=== PATIENT | male | born 1995 | race Caucasian/White ===

== ENCOUNTER → 2020-09-23 | Outpatient (CLI) | payer BC ==
[2020-09-23 20:00] LABS: BASO # 0.1 10^3/uL (0.0-0.2); BASO % 1.7 % (0.0-1.0); EOS # 0.5 10^3/uL (0.0-0.5); EOS % 8.1 % (0.0-3.0); HEMATOCRIT 46.9 % (42.0-52.0); HEMOGLOBIN 15.4 g/dl (13.5-17.5); LYMPH # 2.4 10^3/uL (1.5-5.0); LYMPH % 37.3 % (24.0-44.0); MEAN CORPUSCULAR HEMOGLOBIN 32.4 pg (27.0-33.0); MEAN CORPUSCULAR HGB CONC 32.8 g/dl (32.0-36.5); MEAN CORPUSCULAR VOLUME 98.5 fl (80.0-96.0); MONO # 0.8 10^3/uL (0.0-0.8); MONO % 11.8 % (2.0-8.0); NEUTROPHILS # 2.7 10^3/uL (1.5-8.5); NEUTROPHILS % 40.8 % (36.0-66.0); PLATELET COUNT, AUTOMATED 230 10^3/uL (150-450); RED BLOOD COUNT 4.76 10^6/uL (4.30-6.10); WHITE BLOOD COUNT 6.5 10^3/uL (4.0-10.0)
[2020-09-23 20:29] LABS: ALT/SGPT 28 U/L (12-78); BILIRUBIN,TOTAL 0.5 MG/DL (0.2-1.0); BLOOD UREA NITROGEN 24 MG/DL (7-18); CALCIUM LEVEL 9.2 MG/DL (8.5-10.1); CARBON DIOXIDE LEVEL 30 MEQ/L (21-32); CHLORIDE LEVEL 103 MEQ/L (98-107); CHOLESTEROL LEVEL 180 MG/DL (<200); CHOLESTEROL RISK RATIO 1.894 (<5); CREATININE FOR GFR 1.07 MG/DL (0.70-1.30); GLOMERULAR FILTRATION RATE > 60.0 (>60); GLUCOSE, FASTING 73 MG/DL (70-100); HDL CHOLESTEROL 95 MG/DL (>40); NON-HDL-C 85 MG/DL; POTASSIUM SERUM 4.4 MEQ/L (3.5-5.1); SODIUM LEVEL 139 MEQ/L (136-145); TRIGLYCERIDES LEVEL 60 MG/DL (<150)
[2020-09-23 20:30] LABS: ALBUMIN 4.3 GM/DL (3.2-5.2); FREE T4 0.98 NG/DL (0.76-1.46); LDL CHOLESTEROL 73 MG/DL (<100); TOTAL PROTEIN 7.9 GM/DL (6.4-8.2)
== END ==
LOC: M WUC 15:39
PROVIDERS: ATTEND Physician Assistant
DX: R07.9 Chest pain, unspecified (principal)

== ENCOUNTER 2021-03-18 18:18 | Emergency (ER) | payer BC ==
[~2021-03-18] VITALS: Ht 188 cm; Wt 215.0 kg
--- OUTSIDE RECORDS SUMMARY | 2021-03-18 18:24 | CCD ---
Author Author [facility] Organization [facility] Address Unknown Phone Unavailable Care Team Providers Care Mason Foreman/Superintendant Name Role Phone Christopher Anahi MEDICAL RECEPTION Unavailable Unavailable Christopher, Anahi MEDICAL RECEPTION Unavailable Unavailable Christopher, Anahi MEDICAL RECEPTION Unavailable Unavailable Christopher, Anahi MEDICAL RECEPTION Unavailable Unavailable Christopher, Anahi MEDICAL RECEPTION Unavailable Unavailable Christopher, Anahi MEDICAL RECEPTION Unavailable Unavailable Christopher, Anahi MEDICAL RECEPTION Unavailable Unavailable Christopher, Anahi MEDICAL RECEPTION Unavailable Unavailable Christopher, Anahi MEDICAL RECEPTION Unavailable Unavailable Christopher, Anahi MEDICAL RECEPTION Unavailable Unavailable Christopher, Anahi MEDICAL RECEPTION Unavailable Unavailable Christopher, Anahi MEDICAL RECEPTION Unavailable Unavailable Christopher, Anahi MEDICAL RECEPTION Unavailable Unavailable Campanaro, Mare Venus PA Unavailable Unavailable Campanaro, Mare Vneus PA Unavailable Unavailable Campanaro, Mare Venus PA Unavailable Unavailable Campanaro, Mare Venus PA Unavailable Unavailable Campanaro, Mare Venus PA Unavailable Unavailable Campanaro, Mare Venus PA Unavailable Unavailable Campanaro, Mare Venus PA Unavailable Unavailable Campanaro, Mare Venus PA Unavailable Unavailable Campanaro, Mare Venus PA Unavailable Unavailable Campanaro, Mare Venus PA Unavailable Unavailable Campanaro, Mare Venus PA Unavailable Unavailable Campanaro, Mare Venus PA Unavailable Unavailable Campanaro, Mare Venus PA Unavailable Unavailable Campanaro, Mare Venus PA Unavailable Unavailable Campanaro, Mare Venus PA Unavailable Unavailable Campanaro, Rebecca Meloshani TORRES Unavailable Unavailable Campanaro, Rebecca Donovan MELISSA Unavailable Unavailable Re-disclosure Warning The records that you are about to access may contain information from federally-assisted alcohol or drug abuse programs. If such information is present, then the following federally mandated warning applies: This information has been disclosed to you from records protected by federal confidentiality rules (42 CFR part 2). The federal rules prohibit you from making any further disclosure of this information unless further disclosure is expressly permitted by the written consent of the person to whom it pertains or as otherwise permitted by 42 CFR part 2. A general authorization for the release of medical or other information is NOT sufficient for this purpose. The Federal rules restrict any use of the information to criminally investigate or prosecute any alcohol or drug abuse patient.The records that you are about to access may contain highly sensitive health information, the redisclosure of which is protected by Article 27-F of the [facility] Public Health law. If you continue you may have access to information: Regarding HIV / AIDS; Provided by facilities licensed or operated by the [facility] Office of Mental Health; or Provided by the [facility] Office for People With Developmental Disabilities. If such information is present, then the following [facility] mandated warning applies: This information has been disclosed to you from confidential records which are protected by state law. State law prohibits you from making any further disclosure of this information without the specific written consent of the person to whom it pertains, or as otherwise permitted by law. Any unauthorized further disclosure in violation of state law may result in a fine or care home sentence or both. A general authorization for the release of medical or other information is NOT sufficient authorization for further disc losure. Encounters Encounter Providers Location Date Indications Data Source(s ) Outpatient 02/18/2021 03:36:50 PM EST - 021 04:16:03 PM EST [facility] ([facility]) Outpatient 12/12/2020 01:54:11 PM EDT - 021 03:22:15 PM EDT [facility] ([facility]) Outpatient Attender: Venus zendejas 09/22/2020 04:40:00 PM EDT [facility] ([facility]) Outpatient Attender: Anahi villa 08/19/2020 03:10:00 PM EDT [facility] ([facility], [facility]) Immunizations Vaccine Date Status Description Data Source(s) COVID-19 VACCINE Pfizer 03/11/2021 12:00:00 AM EST completed [facility] Vaccine Series Complete: NOThis Data was Submitted to [facility]. COVID-19 VACC, MRNA(PFIZER)/PF 03/11/2021 12:00:00 AM EST completed [facility] Medications No Information Insurance Providers Payer name Policy type / Coverage type Policy ID Covered green party ID Covered green party's relationship to solitario Policy Solitario Plan Information POMCO U [id number] Child [id number] POMCO [id number] MO2 [id number] [employer] Blue [employer] and Blue Shield [facility] Blue Cross/B lue Shield [id number] Self [id number] [employer] Blue Cross and Blue Shield [facility] Blue Cross/ Blue Shield [id number] Self [id number] BCBS OF [place]AT[place] [phone] [id number] SP [id number] [employer] PPO O [id number] C [id number] [employer] Commercial [id number] Family Dependent Problems, Conditions, and Diagnoses No Information Surgeries/Procedures Procedure Description Date Indications Data Source(s) ECG ROUTINE ECG W/LEAST 12 LDS W/I&R 09/22/2020 12:00: 00 AM EDT [facility] ([facility]) OFFICE OUTPATIENT NEW 30 MINUTES 09/22/2020 12:00:00 A M EDT [facility] ([facility]) Results ID Date Data Source [id number] 03/13/2021 12:00:00 AM EST [facility] Name Value Range Interpretation Code Description Data Lisette rce(s) Supporting Document(s) SARS-CoV2 Rapid Antigen Negative [facility] This lab was ordered by [facility] and reported by [facility]. ID Date Data Source [id number] 02/18/2021 04:15:00 PM EST [facility] Name Value Range Interpretation Code Description Data Lisette rce(s) Supporting Document(s) SARS-CoV-2 RNA Resp Ql ROBERT+probe NOT DETECTED [facility] This lab was ordered by MELISSA boles and reported by [facility]. ID Date Data Source [id number] 12/12/2020 03:15:00 PM EDT [facility] Name Value Range Interpretation Code Description Data Lisette rce(s) Supporting Document(s) SARS-CoV-2 RNA Resp Ql ROBERT+probe NOT DETECTED [facility] This lab was ordered by MELISSA boles and reported by [facility]IS[facility]. ID Date Data Source [id number] 09/23/2020 03:39:00 PM EDT [facility] ([facility], [facility]) Name Value Range Interpretation Code Description Data Lisette rce(s) Supporting Document(s) Thyroid Stimulating Hormone 1.120 uIU/ML 0.358-3.740 [facility] ([facility], [facility]) Free T4 0.98 ng/dL 0.76-1.46 [facility] ([facility]) ID Date Data Source [id number] 09/23/2020 03:39:00 PM EDT [facility] ([facility], [facility]) Name Value Range Interpretation Code Description Data Lisette rce(s) Supporting Document(s) Triglycerides Level 60 mg/dL [facility] ([facility], [facility]) HDL Cholesterol 95 mg/dL [facility] ([facility], [facility]) Cholesterol Level 180 mg/dL [facility] ([facility], [facility]) Non-HDL-C 85 mg/dL [facility] ([facility], [facility]) LDL Cholesterol 73 mg/dL [facility] ([facility], [facility]) Cholesterol Risk Ratio 1.894 [facility] ([facility], [facility]) ID Date Data Source [id number] 09/23/2020 03:39:00 PM EDT [facility] ([facility], [facility]) Name Value Range Interpretation Code Description Data Lisette rce(s) Supporting Document(s) Blood Urea Nitrogen 24 mg/dL 7-18 [facility] ([facility], [facility]) Glucose, Fasting 73 mg/dL 70-100 [facility] ([facility], [facility]) Glomerular Filtration Rate Laboratory test result [facility] ([facility], [facility]) <content>Units are mL/min/1.73 m2</content>
<content></content>
<content>Chronic Kidney Disease Staging per NKF:</content>
<content></content>
<content>Stage I & II GFR >=60 Normal to Mildly Decreased</content>
<content>Stage III GFR 30-59 Moderately Decreased</content>
<content>Stage IV GFR 15-29 Severely Decreased</content>
<content>Stage V GFR <15 Very Little GFR Left</content>
<content>ESRD GFR <15 on AERIAL LINEMAN</content>
<content></content> Creatinine For GFR 1.07 mg/dL 0.70-1.30 [facility] ([facility], [facility]) Potassium Serum 4.4 meq/L 3.5-5.1 [facility] ([facility], [facility]) Sodium Level 139 meq/L 136-145 [facility] ([facility], [facility]) Carbon Dioxide Level 30 meq/L 21-32 [facility] ([facility], [facility]) Chloride Level 103 meq/L 98-107 [facility] ([facility], [facility]) Anion Gap 6 meq/L 8-16 [facility] ([facility], [facility]) Calcium Level 9.2 mg/dL 8.5-10.1 [facility] ([facility], [facility]) Ast/Sgot 17 U/L 7-37 [facility] ([facility], [facility]) Alkaline Phosphatase 47 U/L 45-117 [facility] ([facility], [facility]) Alt/SGPT 28 U/L 12-78 [facility] ([facility], [facility]) Total Protein 7.9 GM/DL 6.4-8.2 [facility] ([facility], [facility]) Bilirubin,Total 0.5 mg/dL 0.2-1.0 [facility] ([facility], [facility]) Albumin 4.3 GM/DL 3.2-5.2 [facility] ([facility], [facility]) Albumin/Globulin Ratio 1.2 [facility] ([facility], [facility]) ID Date Data Source [id number] 09/23/2020 03:39:00 PM EDT [facility] ([facility], [facility]) Name Value Range Interpretation Code Description Data Lisette rce(s) Supporting Document(s) Red Blood Count 4.76 10 4.30-6.10 [facility] ([facility], [facility]) White Blood Count 6.5 10 4.0-10.0 [facility] ([facility], [facility]) Hemoglobin 15.4 g/dL 13.5-17.5 [facility] ([facility], [facility]) Hematocrit 46.9 % 42.0-52.0 [facility] ([facility], [facility]) Mean Corpuscular Hemoglobin 32.4 pg 27.0-33.0 [facility] ([facility], [facility]) Mean Corpuscular Volume 98.5 fl 80.0-96.0 M [facility] ([facility], [facility]) Mean Corpuscular HGB Conc 32.8 g/dL 32.0-36.5 [facility] ([facility], [facility]) Red Cell Distribution Width 12.5 % 11.5-14.5 [facility] ([facility], [facility]) Platelet Count, Automated 230 10 150-450 [facility] ([facility], [facility]) Neutrophils % 40.8 % 36.0-66.0 [facility] ([facility], [facility]) [place] % 11.8 % 2.0-8.0 [facility] ([facility], [facility]) Lymph % 37.3 % 24.0-44.0 [facility] ([facility], [facility]) Eos % 8.1 % 0.0-3.0 [facility] ([facility], [facility]) Immature Granulocyte % 0.3 % 0-3.0 [facility] ([facility], [facility]) Baso % 1.7 % 0.0-1.0 [facility] ([facility], [facility]) Nucleated Red Blood Cell % 0.0 % 0-0 [facility] ([facility]) Lymph # 2.4 10 1.5-5.0 [facility] ([facility]) Neutrophils # 2.7 10 1.5-8.5 [facility] ([facility]) [place] # 0.8 10 0.0-0.8 [facility] ([facility], [facility]) Baso # 0.1 10 0.0-0.2 [facility] ([facility], [facility]) Eos # 0.5 10 0.0-0.5 [facility] ([facility], [facility]) ID Date Data Source [id number] 08/19/2020 12:00:00 AM EDT [facility] Name Value Range Interpretation Code Description Data Lisette rce(s) Supporting Document(s) SARS-CoV2 Rapid Antigen [facility] This lab was reported by [facility]. ID Date Data Source [id number] 04/14/2020 12:00:00 AM EST [facility] Name Value Range Interpretation Code Description Data Lisette rce(s) Supporting Document(s) SARS coronavirus 2 RNA [Presence] in Res piratory specimen by ROBERT with probe detection NEGATIVE [facility] This lab was ordered by [facility] and reported by [facility]. Procedure Social History No Information Vital Signs ID Date Data Source UNK Name Value Range Interpretation Code Description Data Source(s) Systolic blood pressure 122 mm[Hg] 122 mm[Hg] M [facility] ([facility]) Diastolic blood pressure 73 mm[Hg] 73 mm[Hg] [facility] ([facility]) Heart rate 82 /min 82 /min [facility] ([facility]) Respiratory rate 16 /min 16 /min [facility] ( [facility]) Oxygen saturation in Arterial blood by Pulse oximetry 97 % 97 % [facility] ([facility]) Body temperature 97.7 [degF] 97.7 [degF] [facility] ([facility]) Body weight 202.00 [lb_av] 202.00 [lb_av] [facility] ([facility], [facility]) Body height 74 [in_i] 74 [in_i] [facility] ([facility], [facility]) 6'2" Body mass index (BMI) [Ratio] 25.9 kg/m2 25.9 k g/m2 [facility] ([facility], [facility]) Respiratory rate 20 /min 20 /min [facility] ( [facility], [facility]) Systolic blood pressure 121 mm[Hg] 121 mm[Hg] M [facility] ([facility], [facility]) Diastolic blood pressure 77 mm[Hg] 77 mm[Hg] [facility] ([facility], [facility]) Heart rate 66 /min 66 /min [facility] ([facility], [facility]) Oxygen saturation in Arterial blood by Pulse oximetry 98 % 98 % [facility] ([facility], [facility]) Body temperature 98.2 [degF] 98.2 [degF] [facility] ([facility], [facility]) Body weight 200.00 [lb_av] 200.00 [lb_av] [facility] ([facility], [facility]) Body height 74 [in_i] 74 [in_i] [facility] ([facility], [facility]) 6'2" Body mass index (BMI) [Ratio] 25.7 kg/m2 25.7 k g/m2 [facility] ([facility], [facility])
--- OUTSIDE RECORDS SUMMARY | 2021-03-18 18:24 | CCD | Continuity of Care Document ---
Author Author Jose Alberto [facility] Organization Unknown Address [address] [place] [address] Phone [phone] Care Team Providers Care J2Ee Java Developer Name Role Phone [employer] AUTM [phone] [facility] [phone] Antony Caldera M.D. AUTM [phone] Problems Description No Information Available Social History Type Date Description Comments Sex Unknown ETOH Use Occasionally consumes alcohol Tobacco Use Start: Unknown The patient has never vaped Tobacco Use Start: Unknown Patient has never smoked Smoking Status Reviewed: 09/26/19 Patient has never smoked Allergies and adverse reactions Active Allergies Criticality Reaction | Severity Comments Date Penicillin V Unable to assess criticality Difficulty breathing, Difficulty swallowing, Facial swelling 09/26/2019 Medications Description No Active Medications Immunizations Description No Information Available Vital Signs Date Vital Result Comment 09/22/2020 4:51pm BP Systolic 122 mmHg BP Diastolic 73 mmHg Heart Rate 82 /min Respiratory Rate 16 /min O2 % BldC Oximetry 97 % Body Temperature 97.7 F Weight 202.00 lb Height 74 inches 6'2" BMI (Body Mass Index) 25.9 kg/m2 Pain Level 1 08/19/2020 3:38pm BP Systolic 121 mmHg BP Diastolic 77 mmHg Heart Rate 66 /min Respiratory Rate 20 /min O2 % BldC Oximetry 98 % Body Temperature 98.2 F Weight 200.00 lb Height 74 inches 6'2" BMI (Body Mass Index) 25.7 kg/m2 Pain Level 0 Results Test Acquired Date Facility Test Result H/L Range Note CBC With Differential 09/23/2020 [facility] [address] [place], [place] [id number] [phone] White Blood Count 6.5 10 Normal 4.0-10.0 Red Blood Count 4.76 10 Normal 4.30-6.10 Hemoglobin 15.4 g/dL Normal 13.5-17.5 Hematocrit 46.9 % Normal 42.0-52.0 Mean Corpuscular Volume 98.5 fl High 80.0-96.0 Mean Corpuscular Hemoglobin 32.4 pg Normal 27.0-33.0 Mean Corpuscular HGB Conc 32.8 g/dL Normal 32.0-36.5 Red Cell Distribution Width 12.5 % Normal 11.5-14.5 Platelet Count, Automated 230 10 Normal 150-450 Neutrophils % 40.8 % Normal 36.0-66.0 Lymph % 37.3 % Normal 24.0-44.0 [place] % 11.8 % High 2.0-8.0 Eos % 8.1 % High 0.0-3.0 Baso % 1.7 % High 0.0-1.0 Immature Granulocyte % 0.3 % Normal 0-3.0 Nucleated Red Blood Cell % 0.0 % Normal 0-0 Neutrophils # 2.7 10 Normal 1.5-8.5 Lymph # 2.4 10 Normal 1.5-5.0 [place] # 0.8 10 Normal 0.0-0.8 Eos # 0.5 10 Normal 0.0-0.5 Baso # 0.1 10 Normal 0.0-0.2 Comprehensive Metabolic Profil 09/23/[address] [address] [phone] Glucose, Fasting 73 mg/dL Normal 70-100 Blood Urea Nitrogen 24 mg/dL High 7-18 Creatinine For GFR 1.07 mg/dL Normal 0.70-1.30 Glomerular Filtration Rate > 60.0 Normal >60 1 Sodium Level 139 mEq/L Normal 136-145 Potassium Serum 4.4 mEq/L Normal 3.5-5.1 Chloride Level 103 mEq/L Normal 98-107 Carbon Dioxide Level 30 mEq/L Normal 21-32 Anion Gap 6 mEq/L Low 8-16 Calcium Level 9.2 mg/dL Normal 8.5-10.1 Ast/Sgot 17 U/L Normal 7-37 Alt/SGPT 28 U/L Normal 12-78 Alkaline Phosphatase 47 U/L Normal 45-117 Bilirubin,Total 0.5 mg/dL Normal 0.2-1.0 Total Protein 7.9 GM/DL Normal 6.4-8.2 Albumin 4.3 GM/DL Normal 3.2-5.2 Albumin/Globulin Ratio 1.2 Normal Lipid Panel 09/23/2020 [facility] [address] [place] [address] [phone] Triglycerides Level 60 mg/dL Normal <150 Cholesterol Level 180 mg/dL Normal <200 HDL Cholesterol 95 mg/dL Normal >40 LDL Cholesterol 73 mg/dL Normal <100 Non-HDL-C 85 mg/dL Normal Cholesterol Risk Ratio 1.894 Normal <5 FT4&TSH Panel 09/23/2020 [facility] [address] [place] [address] [phone] Thyroid Stimulating Hormone 1.120 uIU/ML Normal 0. 358-3.740 Free T4 0.98 ng/dL Normal 0.76-1.46 1 Units are mL/min/1.73 m2 Chronic Kidney Disease Staging per NKF: Stage I & II GFR >=60 Normal to Mildly Decreased Stage III GFR 30-59 Moderately Decreased Stage IV GFR 15-29 Severely Decreased Stage V GFR <15 Very Little GFR Left ESRD GFR <15 on MERC[employer]ENT Procedures Date Code Description Status 09/22/2020 [address]184 Office/Outpatient [facility] MDM 30 -44 Minutes Completed 09/22/2020 72960 Electrocardiogram Complete Compl eted Medical Devices Description No Information Available Encounters Type Date Location Provider Dx Diagnosis Office Visit 09/22/2020 4:40p Main Office MELISSA Palencia R0 7.9 Chest pain, unspecified R07.9 Chest pain, unspecified Assessments Date Code Description Provider 09/22/2020 R07.9 Chest pain, unspecified MELISSA To 09/22/2020 R07.9 Chest pain, unspecified MELISSA To Plan of Treatment No Information Available Functional Status Description No Information Available Mental Status Description No Information Available Referrals Refer to Reason for Referral Status Appt Date Antony Caldera M.D. Abnormal Chest sensation X 1 week, family hx of cardiac issues. Patient Declined 01/07/2021 [address] [facility], [address] [place] [address] [phone]
--- OUTSIDE RECORDS SUMMARY | 2021-03-18 18:24 | CCD | Continuity of Care Document ---
Author Author Jose Alberto SHARMA [place] Organization Unknown Address [address] [place] [id number] Phone [phone] Care Team Providers Care Engraver Optical Frames Name Role Phone Chaz [place] Publi AUTM [phone] [place] [facility] AUTM [phone] Antony Caldera M.D. AUTM [phone] Problems Description No Information Available Social History [...] H/L Range Note CBC With Differential 09/23/2020 [facility] [address], [place] [id number] [phone] White Blood Count 6.5 10 Normal 4.0-10.0 [...] 36.0-66.0 Lymph % 37.3 % Normal 24.0-44.0 [place] % 11.8 % High 2.0-8.0 Eos % 8.1 % High 0.0-3.0 Baso % 1.7 % High 0.0-1.0 Immature Granulocyte % 0.3 % Normal 0-3.0 Nucleated Red Blood Cell % 0.0 % Normal 0-0 Neutrophils # 2.7 10 Normal 1.5-8.5 Lymph # 2.4 10 Normal 1.5-5.0 [place] # 0.8 10 Normal 0.0-0.8 Eos # 0.5 10 Normal 0.0-0.5 Baso # 0.1 10 Normal 0.0-0.2 Comprehensive Metabolic Profil 09/23/[address] [address] [phone] Glucose, Fasting 73 mg/dL Normal 70-100 Blood [...] Albumin/Globulin Ratio 1.2 Normal Lipid Panel 09/23/2020 [facility] [address] [place] [address] [phone] Triglycerides Level 60 mg/dL Normal <150 Cholesterol Level 180 mg/dL Normal <200 HDL Cholesterol 95 mg/dL Normal >40 LDL Cholesterol 73 mg/dL Normal <100 Non-HDL-C 85 mg/dL Normal Cholesterol Risk Ratio 1.894 Normal <5 FT4&TSH Panel 09/23/2020 [facility] [address] [place] [address] [phone] Thyroid Stimulating Hormone 1.120 uIU/ML Normal 0. 358-3.740 Free T4 0.98 ng/dL Normal 0.76-1.46 1 Units are mL/min/1.73 m2 Chronic Kidney Disease Staging per NKF: Stage I & II GFR >=60 Normal to Mildly Decreased Stage III GFR 30-59 Moderately Decreased Stage IV GFR 15-29 Severely Decreased Stage V GFR <15 Very Little GFR Left ESRD GFR <15 on CONDUCTOR/ENGINEER Procedures Date Code Description Status 09/22/2020 90280 Office/Outpatient New Low MDM 30 -44 Minutes Completed 09/22/2020 12954 Electrocardiogram Complete Compl eted Medical Devices Description No Information Available Encounters Type Date Location Provider Dx Diagnosis Office Visit 09/22/2020 4:40p Main Office MELISSA Palencia R0 7.9 Chest pain, unspecified R07.9 Chest pain, unspecified Assessments Date Code Description Provider 03/13/2021 Z20.828 Contact with and (brown spected) exposure to other viral communicable diseases MELISSA Becker 09/22/2020 R07.9 Chest pain, unspecified MELISSA To 09/22/2020 R07.9 Chest pain, unspecified MELISSA To Plan of Treatment No Information Available Functional Status Description No Information Available Mental Status Description No Information Available Referrals Refer to Reason for Referral Status Appt Date Antony Caldera M.D. Abnormal Chest sensation X 1 week, family hx of cardiac issues. Patient Declined 01/07/2021 [address] [facility], [address] [place] [id number] [phone]
[2021-03-18 21:37] LABS: HEMATOCRIT 45.6 % (42.0-52.0); HEMOGLOBIN 15.4 g/dl (13.5-17.5); MEAN CORPUSCULAR HEMOGLOBIN 31.9 pg (27.0-33.0); MEAN CORPUSCULAR HGB CONC 33.8 g/dl (32.0-36.5); MEAN CORPUSCULAR VOLUME 94.4 fl (80.0-96.0); PLATELET COUNT, AUTOMATED 236 10^3/uL (150-450); RED BLOOD COUNT 4.83 10^6/uL (4.30-6.10); WHITE BLOOD COUNT 11.5 10^3/uL (4.0-10.0)
--- NOTE | 2021-03-18 21:43 | REPVR ---
PROCEDURE INFORMATION: Exam: XR Chest Exam date and time: 03/18/2021 9:22 PM Age: 25 years old Clinical indication: Pain; Radiating; Additional info: Chest pain TECHNIQUE: Imaging protocol: XR of the chest. Views: 1 view. COMPARISON: No relevant prior studies available. FINDINGS: Lungs: Unremarkable. No consolidation. Pleural spaces: Unremarkable. No pleural effusion. No pneumothorax. Heart/Mediastinum: Unremarkable. No cardiomegaly. Bones/joints: Unremarkable. IMPRESSION: No acute findings. Electronically signed by: Skip Joiner On 03/18/2021 21:42:49 PM
--- OUTSIDE RECORDS SUMMARY | 2021-03-18 22:06 | CCD ---
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 Name Role Phone Christopher, Anahi COSMETIC CHEMIST Unavailable Unavailable Christopher, Anahi COSMETIC CHEMIST Unavailable Unavailable Christopher, Anahi COSMETIC CHEMIST Unavailable Unavailable Christopher, Anahi COSMETIC CHEMIST Unavailable Unavailable Christopher, Anahi COSMETIC CHEMIST Unavailable Unavailable Christopher, Anahi COSMETIC CHEMIST Unavailable Unavailable Christopher, Anahi COSMETIC CHEMIST Unavailable Unavailable Christopher, Anahi COSMETIC CHEMIST Unavailable Unavailable Christopher, Anahi COSMETIC CHEMIST Unavailable Unavailable Christopher, Anahi COSMETIC CHEMIST Unavailable Unavailable Christopher, Anahi COSMETIC CHEMIST Unavailable Unavailable Christopher, Anahi COSMETIC CHEMIST Unavailable Unavailable Christopher, Anahi COSMETIC CHEMIST Unavailable Unavailable Campanaro, Mare [place] PA Unavailable [...] Mare [place] PA Unavailable Unavailable Campanaro, Rebecca Donovan PA Unavailable Unavailable Campanaro, Rebecca Donovan PA Unavailable Unavailable Campanaro, Rebecca Donovan PA Unavailable Unavailable Campanaro, Rebecca Donovan PA Unavailable Unavailable Re-disclosure Warning The records that [...] is protected by Article 27-F of the [facility] Public Health law. If you continue you may have access to information: Regarding HIV / AIDS; Provided by facilities licensed or operated by the [facility] Office of Mental Health; or Provided by the [facility] Office for People With Developmental Disabilities. If such information is present, then the following [facility] mandated warning applies: This information has been [...] law may result in a fine or fpc sentence or both. A general authorization for the release of medical or other information is NOT sufficient authorization for further disc losure. Encounters Encounter Providers Location Date Indications Data Source(s ) Outpatient 02/18/2021 03:36:50 PM EST - 021 04:16:03 PM EST [facility] ([facility]) Outpatient 12/12/2020 01:54:11 PM EDT - 021 03:22:15 PM EDT [facility] ([facility]) Outpatient Attender: [place] [email or web address] 09/22/2020 04:40:00 PM EDT [facility] ([facility]) Outpatient Attender: Anahi Morton daisy 08/19/2020 03:10:00 PM EDT [facility] ([facility] Immunizations Vaccine Date Status Description Data Source(s) COVID-19 VACCINE Pfizer 03/11/2021 12:00:00 AM EST completed [facility] Vaccine Series Complete: NOThis Data was Submitted to [facility] Via [email or web address]. COVID-19 VACC, MRNA(PFIZER)/PF 03/11/2021 12:00:00 AM EST completed [facility] Medications No Information Insurance Providers Payer name Policy type / Coverage type Policy ID Covered alliance party ID Covered alliance party's relationship to solitario Policy Solitario Plan Information POMCO U [id number] Child [id number] POMCO [id number] MO2 [id number] [employer] Blue [employer] and Blue Shield [facility] Blue Cross/B e Shield [id number] Self [id number] [employer] Blue Cross and Blue Shield [facility] Blue Cross/ Blue Shield [id number] Self [id number] BC[place] OF [place] 306/806 [id number] SP [id number] [employer] PPO O [id number] C [id number] [employer] [id number] Family Dependent Problems, Conditions, and Diagnoses No Information Surgeries/Procedures Procedure Description Date Indications Data Source(s) ECG ROUTINE ECG W/LEAST 12 LDS W/I&R 09/22/2020 12:00: 00 AM EDT [facility] ([facility], [facility]) OFFICE OUTPATIENT NEW 30 MINUTES 09/22/2020 12:00:00 A M EDT [facility] ([facility], [facility]) Results ID Date Data Source [id number] 03/13/2021 12:00:00 AM EST [facility] Name Value Range Interpretation Code Description Data Lisette rce(s) Supporting Document(s) SARS-CoV2 Rapid Antigen Negative [facility] This lab was ordered by [facility] and reported by [facility]. ID Date Data Source [id number] 02/18/2021 04:15:00 PM EST [facility] Name Value Range Interpretation Code Description Data Lisette rce(s) Supporting Document(s) SARS-CoV-2 RNA Resp Ql ROBERT+probe NOT DETECTED [facility] This lab was ordered by MELISSA boles and reported by MELISSA Fisher. ID Date Data Source [id number] 12/12/2020 03:15:00 PM EDT [facility] Name Value Range Interpretation Code Description Data Lisette rce(s) Supporting Document(s) SARS-CoV-2 RNA Resp Ql ROBERT+probe NOT DETECTED [facility] This lab was ordered by MELISSA boles and reported by MELISSA Fisher. ID Date Data Source [id number] 09/23/2020 03:39:00 PM EDT [facility] ([facility], [facility]) Name Value Range Interpretation Code Description Data Lisette rce(s) Supporting Document(s) Thyroid Stimulating Hormone 1.120 uIU/ML 0.358-3.740 [facility] ([facility], [facility]) Free T4 0.98 ng/dL 0.76-1.46 [facility] ([facility], [facility]) ID Date Data Source [id number] 09/23/2020 03:39:00 PM EDT [facility] ([facility], [facility]) Name Value Range Interpretation Code Description Data Lisette rce(s) Supporting Document(s) Triglycerides Level 60 mg/dL [facility] ([facility], [facility]) HDL Cholesterol 95 mg/dL [facility] ([facility], [facility]) Cholesterol Level 180 mg/dL [facility] ([facility], [facility]) Non-HDL-C 85 mg/dL [facility] ([facility], [facility]) LDL Cholesterol 73 mg/dL [facility] ([facility], [facility]) Cholesterol Risk Ratio 1.894 [facility] ([facility], [facility]) ID Date Data Source [id number] 09/23/2020 03:39:00 PM EDT [facility] ([facility], [facility]) Name Value Range Interpretation Code Description Data Lisette rce(s) Supporting Document(s) Blood Urea Nitrogen 24 mg/dL 7-18 [facility] ([facility], [facility]) Glucose, Fasting 73 mg/dL 70-100 [facility] ([facility], [facility]) Glomerular Filtration Rate Laboratory test result [facility] ([facility], [facility]) <content>Units are mL/min/1.73 m2</content>
<content></content>
<content>Chronic Kidney Disease Staging per NKF:</content>
<content></content>
<content>Stage I & II GFR >=60 Normal to Mildly Decreased</content>
<content>Stage III GFR 30-59 Moderately Decreased</content>
<content>Stage IV GFR 15-29 Severely Decreased</content>
<content>Stage V GFR <15 Very Little GFR Left</content>
<content>ESRD GFR <15 on ENVIRONMENTAL MANAGER</content>
<content></content> Creatinine For GFR 1.07 mg/dL 0.70-1.30 [facility] ([facility], [facility]) Potassium Serum 4.4 meq/L 3.5-5.1 [facility] ([facility], [facility]) Sodium Level 139 meq/L 136-145 [facility] ([facility], [facility]) Carbon Dioxide Level 30 meq/L 21-32 [facility] ([facility]) Chloride Level 103 meq/L 98-107 [facility] ([facility]) Anion Gap 6 meq/L 8-16 [facility] ([facility], [facility]) Calcium Level 9.2 mg/dL 8.5-10.1 [facility] ([facility], [facility]) Ast/Sgot 17 U/L 7-37 [facility] ([facility], [facility]) Alkaline Phosphatase 47 U/L 45-117 [facility] ([facility]) Alt/SGPT 28 U/L 12-78 [facility] ([facility]) Total Protein 7.9 GM/DL 6.4-8.2 [facility] ([facility], [facility]) Bilirubin,Total 0.5 mg/dL 0.2-1.0 [facility] ([facility], [facility]) Albumin 4.3 GM/DL 3.2-5.2 [facility] ([facility], [facility]) Albumin/Globulin Ratio 1.2 [facility] ([facility], [facility]) ID Date Data Source [id number] 09/23/2020 03:39:00 PM EDT [facility] ([facility], [facility]) Name Value Range Interpretation Code Description Data Lisette rce(s) Supporting Document(s) Red Blood Count 4.76 10 4.30-6.10 [facility] ([facility], [facility]) White Blood Count 6.5 10 4.0-10.0 [facility] ([facility], [facility]) Hemoglobin 15.4 g/dL 13.5-17.5 [facility] ([facility]) Hematocrit 46.9 % 42.0-52.0 [facility] ([facility]) Mean Corpuscular Hemoglobin 32.4 pg 27.0-33.0 [facility] ([facility], [facility]) Mean Corpuscular Volume 98.5 fl 80.0-96.0 M EDENT ([facility], [facility]) Mean Corpuscular HGB Conc 32.8 g/dL 32.0-36.5 [facility] ([facility], [facility]) Red Cell Distribution Width 12.5 % 11.5-14.5 [facility] ([facility], [facility]) Platelet Count, Automated 230 10 150-450 [facility] ([facility], [facility]) Neutrophils % 40.8 % 36.0-66.0 [facility] ([facility], [facility]) [place] % 11.8 % 2.0-8.0 [facility] ([facility] Lymph % 37.3 % 24.0-44.0 [facility] ([facility], [facility]) Eos % 8.1 % 0.0-3.0 [facility] ([facility] Immature Granulocyte % 0.3 % 0-3.0 [facility] ([facility], [facility]) Baso % 1.7 % 0.0-1.0 [facility] ([facility], [facility]) Nucleated Red Blood Cell % 0.0 % 0-0 [facility] ([facility]) Lymph # 2.4 10 1.5-5.0 [facility] ([facility], [facility]) Neutrophils # 2.7 10 1.5-8.5 [facility] ([facility], [facility]) [place] # 0.8 10 0.0-0.8 [facility] ([facility], [facility]) Baso # 0.1 10 0.0-0.2 [facility] ([facility], [facility]) Eos # 0.5 10 0.0-0.5 [facility] ([facility], [facility]) ID Date Data Source [id number] 08/19/2020 12:00:00 AM [facility]T [facility] Name Value Range Interpretation Code Description Data Lisette rce(s) Supporting Document(s) SARS-CoV2 Rapid Antigen Negative [facility] This lab was reported by [facility]. ID Date Data Source [id number] 04/14/2020 12:00:00 AM EST [facility] Name Value Range Interpretation Code Description Data Lisette rce(s) Supporting Document(s) SARS coronavirus 2 RNA [Presence] in Res piratory specimen by ROBERT with probe detection NEGATIVE [facility] This lab was ordered by [facility] and reported by [facility]. Procedure Social History No Information Vital Signs ID Date Data Source UNK Name Value Range Interpretation Code Description Data Source(s) Systolic blood pressure 122 mm[Hg] 122 mm[Hg] M [facility] ([facility], [facility]) Diastolic blood pressure 73 mm[Hg] 73 mm[Hg] [facility] ([facility]) Heart rate 82 /min 82 /min [facility] ([facility]) Respiratory rate 16 /min 16 /min [facility] ( [facility]) Oxygen saturation in Arterial blood by Pulse oximetry 97 % 97 % [facility] ([facility]) Body temperature 97.7 [degF] 97.7 [degF] [facility], [facility]) Body weight 202.00 [lb_av] 202.00 [lb_av] MEDEN T ([facility], [facility]) Body height 74 [in_i] 74 [in_i] [facility] ([facility], [facility]) 6'2" Body mass index (BMI) [Ratio] 25.9 kg/m2 25.9 k g/m2 [facility] ([facility], [facility]) Respiratory rate 20 /min 20 /min [facility] ( [facility], [facility]) Systolic blood pressure 121 mm[Hg] 121 mm[Hg] [facility] ([facility], [facility]) Diastolic blood pressure 77 mm[Hg] 77 mm[Hg] [facility] ([facility], [facility]) Heart rate 66 /min 66 /min [facility] ([facility], [facility]) Oxygen saturation in Arterial blood by Pulse oximetry 98 % 98 % [facility] ([facility], [facility]) Body temperature 98.2 [degF] 98.2 [degF] [facility], [facility]) Body weight 200.00 [lb_av] 200.00 [lb_av] MEDEN T ([facility], [facility]) Body height 74 [in_i] 74 [in_i] [facility], [facility]) 6'2" Body mass index (BMI) [Ratio] 25.7 kg/m2 25.7 k g/m2 [facility] ([facility], [facility])
[2021-03-18 22:10] LABS: BLOOD UREA NITROGEN 20 MG/DL (7-18); CALCIUM LEVEL 9.3 MG/DL (8.5-10.1); CARBON DIOXIDE LEVEL 27 MEQ/L (21-32); CHLORIDE LEVEL 107 MEQ/L (98-107); CREATININE FOR GFR 1.05 MG/DL (0.70-1.30); GLOMERULAR FILTRATION RATE > 60.0 (>60); GLUCOSE, FASTING 92 MG/DL (70-100); POTASSIUM SERUM 4.2 MEQ/L (3.5-5.1); SODIUM LEVEL 140 MEQ/L (136-145)
[2021-03-18] MEDS ORDERED: NS 1,000 ML IV ONE (22:20)
[2021-03-18] MEDS ORDERED: ISOVUE-370 76% 100ML VIAL As Ordered ONE (22:45)
--- NOTE | 2021-03-18 23:35 | REPVR ---
PROCEDURE INFORMATION: Exam: CTA Chest With Contrast Exam date and time: 03/18/2021 11:02 PM Age: 25 years old Clinical indication: Pain; Angina pectoris; Additional info: Chest pain + d-dimer R/O pe TECHNIQUE: Imaging protocol: Computed tomographic angiography of the chest with contrast. 3D rendering (Not supervised by radiologist): MIP and/or 3D reconstructed images were created by the technologist. Radiation optimization: All CT scans at this facility use at least one of these dose optimization techniques: automated exposure control; mA and/or kV adjustment per patient size (includes targeted exams where dose is matched to clinical indication); or iterative reconstruction. Contrast material: ISOVUVE 370; Contrast volume: 75 ml; Contrast route: INTRAVENOUS (IV); COMPARISON: CR Chest, 1 view 03/18/2021 9:17 PM FINDINGS: Pulmonary arteries: No focal pulmonary artery filling defect to suggest acute pulmonary embolus. Pulmonary vascular/interstitial pattern does not suggest active pulmonary edema. Aorta: No thoracic aortic aneurysm or dissection. Lungs: No suspicious lung mass or air space process. No central endobronchial lesion. Pleural spaces: No pleural effusion or pneumothorax. Heart: No overt cardiac enlargement or abnormal volume of pericardial fluid. Lymph nodes: No enlarged mediastinal lymph nodes. Small left axillary lymph nodes are present, nonspecific finding. Bones/joints: Bony structures show no acute fracture or destructive process. Soft tissues: No asymmetric abnormality of the extrathoracic soft tissues. IMPRESSION: 1. No evidence of acute pulmonary embolus. 2. No other acute or concerning focal intrathoracic abnormality. Electronically signed by: Douglas Vincent On 03/18/2021 23:34:43 PM
[2021-03-19 00:17] VITALS: BP 147/72
--- NOTE | 2021-03-19 18:56 | ECGEPIP ---
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
== END 2021-03-19 00:26 | disposition home or self-care (01) ==
LOC: M ED 18:18
DX: R07.9 Chest pain, unspecified (principal)
CPT/HCPCS: 71045; 71275; 80048; 83735; 84484; 85027; 85379; 93005; 96360; 99284; Q9967